=== PATIENT | female | born 1990 ===

== ENCOUNTER 2020-10-24 15:14 | Emergency (ER) | payer MEDICAID, OTHER ==
[2020-10-24 16:20] VITALS: BP 124/57
[2020-10-24 16:42] LABS: Hepatitis B Surface Antibody Positive
[2020-10-24 16:54] LABS: Hepatitis B Surface Antigen Negative (Negative)
== END 2020-10-24 16:26 | disposition home or self-care (01) ==
LOC: ER 15:14
DX: S61.230A Puncture wound without foreign body of right index finger without damage to nail, initial encounter (principal); W46.1XXA Contact with contaminated hypodermic needle, initial encounter; Y93.89 Activity, other specified; Y92.89 Other specified places as the place of occurrence of the external cause; Y99.8 Other external cause status
CPT/HCPCS: 36415; 86703; 86706; 86803; 87340